=== PATIENT | female | born 1980 | race Caucasian/White ===

== ENCOUNTER 2019-01-16 16:18 | Emergency (ER) | payer SELFPAY ==
[~2019-01-16] VITALS: Ht 172.7 cm; Wt 117.2 kg
[2019-01-16 16:22] VITALS: BP 173/89; PULSE 116; RESP 18; Ht 172.7 cm; Wt 117.2 kg
== END 2019-01-16 20:48 | disposition left against medical advice (07) ==
LOC: E/R 16:18
DX: Z53.21 Procedure and treatment not carried out due to patient leaving prior to being seen by health care provider (principal)
CPT/HCPCS: 93005